=== PATIENT | female | born 1965 | race American Indian/Alaskan Native ===

== ENCOUNTER 2021-12-22 21:13 | Emergency (ER) | payer SELFPAY ==
[2021-12-22 21:17] VITALS: BP 156/95
--- NOTE | 2021-12-22 22:01 | XRay Report ---
Right ankle 3 views INDICATION: Right ankle pain and swelling IMPRESSION: There is moderate swelling surrounding the right ankle. No underlying fracture is identif ied. Signer Name: Papo Clark MD Signed: 12/22/2021 9:57 PM Workstation Name: [id number]
--- NOTE | 2021-12-22 22:02 | XRay Report ---
Right foreleg 3 views INDICATION: Right foreleg pain and swelling IMPRESSION: The right foreleg appears intact. Signer Name: Papo Clark MD Signed: 12/22/2021 9:57 PM Workstation Name: [id number]
== END 2021-12-24 00:31 | disposition left against medical advice (07) ==
LOC: ED 21:13
DX: M25.571 Pain in right ankle and joints of right foot (principal); Z53.21 Procedure and treatment not carried out due to patient leaving prior to being seen by health care provider